=== PATIENT | male | born 2000 | race Caucasian/White ===

== ENCOUNTER 2018-10-04 03:50 | Emergency (ER) | payer OTHER ==
[~2018-10-04] VITALS: Ht 167.6 cm; Wt 70.0 kg
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
[2018-10-04] MEDS ORDERED: DIPHTH/TET/ACEL PERTUSS (ADULT) 0.5 ML VIAL IM* ONE (04:00)
[2018-10-04] MEDS ORDERED: TETRACAINE 0.5% 4 ML OPH LEFT EYE ONE (04:00)
[2018-10-04] MEDS ORDERED: CEPHALEXIN 500 MG CAP PO ONE ×2 (04:00→06:00)
[2018-10-04 04:02] VITALS: BP 126/65; PULSE 89; RESP 19; Ht 167.6 cm; Wt 70.0 kg
[2018-10-04] MEDS ORDERED: IBUPROFEN 600 MG TAB PO ONE (06:00)
[2018-10-04] MEDS ORDERED: IBUP-1542 PO (06:06)
[2018-10-04] MEDS ORDERED: CEPH-443 PO (06:06)
== END 2018-10-04 06:16 | disposition home or self-care (01) ==
LOC: E/R 03:50
DX: S05.12XA Contusion of eyeball and orbital tissues, left eye, initial encounter (principal); S89.91XA Unspecified injury of right lower leg, initial encounter; S89.92XA Unspecified injury of left lower leg, initial encounter; S61.412A Laceration without foreign body of left hand, initial encounter; L08.9 Local infection of the skin and subcutaneous tissue, unspecified; S69.91XA Unspecified injury of right wrist, hand and finger(s), initial encounter; Y04.0XXA Assault by unarmed brawl or fight, initial encounter; Z23 Encounter for immunization
CPT/HCPCS: 70486; 73140; 73560; 73562; 76536; 90471; 90715